=== PATIENT | male | born 2005 ===

== ENCOUNTER 2025-01-07 04:15 | Emergency (ER) | payer OTHER, SELFPAY ==
[2025-01-07 04:25] VITALS: BP 118/73; PULSE 74; RESP 16; TEMP 36.3; O2SAT 98; BMI 21.1
--- NOTE | 2025-01-07 04:45 | ED_ITS ---
HPI - General Adult General Chief complaint: Ear/Nose/Throat Problem Stated complaint: right ear pain Time Seen by Provider: 01/07/25 04:32 Source: patient Mode of arrival: ambulatory Limitations: no limitations History of Present Illness HPI narrative: 19-year-old male presents the emergency department in the wee hours for evaluation of right ear pain for the past 2 hours. Pain constant and achy. No drainage. Opposite ear not affected. Has not tried Tylenol, ibuprofen or any other interventions. Has had URI symptoms for about the past week or so, no fevers. No GI symptoms. No severe shortness of breath or other systemic symptoms. Has not tried any other interventions to help with symptoms. Denies significant past medical history. No long-term medications besides p.r.n. albuterol. He initially denied allergies but then when I attempt to prescribe amoxicillin, states that he thinks he might be allergic to amoxicillin. ROS is notable for the HEENT symptoms only, otherwise denies times 12 systems. Related Data Home Medications ?Medication ?Instructions ?Recorded ?Confirmed albuterol 90 mcg/actuation aerosol mcg inhalation 12/17 06/09 inhaler Previous Rx's ?Medication ?Instructions ?Recorded azithromycin 250 mg tablet See Rx Instructions PO .COM PLEX #6 01/07/25 tabs Allergies Allergy/AdvReac Type Severity Reaction Status Date / Time No Known Drug Allergies Allergy Verified 01/07/25 04:28 Exam Const: Vital Signs, click to edit/add: Vital Signs - 24 hr 01/07/25 04:25 Temperature 97.4 F L Pulse Rate [Pulse Oximeter] 74 Respiratory Rate 16 Blood Pressure [Ri ght Upper Arm] 118/73 Pulse Oximetry 98 Oxygen Delivery Me thod Room Air Documenting provider has reviewed patient's vital signs: yes Common normals: no apparent distress General appearance: cooperative and well kempt HENMT: Common normals: moist oral mucous membranes, oropharynx normal and dentition normal Face and sinus: normal facial exam Other: Left TM and canal normal. Right TM with cerumen impaction, gently cleared with ear curette to reveal normal canal. TM though is erythematous, injected does not bulged but does have slight skewing of the light reflex. Eye: Common normals: conjunctivae normal General eye: normal appearance of both eyes Conjunctiva: conjunctiva(e) normal Neck & C-Spine: Common normals: no lymphadenopathy General: normal visual inspection Resp: Common normals: normal respiratory effort Effort & inspection: able to speak in complete sentences Psych: Appearance: well kempt Attitude: engaged Insight: insight good Judgement: judgment good Skin: Common normals: no rashes or lesions noted General skin exam: no rashes or lesions noted Course Course ED Course: 19-year-old male with right ear pain, no features of sepsis, meningitis or other alarming symptoms. Has had recent URI. Symptoms improved little bit with clearing of the cerumen but TM does show signs of infection. Counseled patient that it is difficult to tell if this is viral or bacterial but typically after progression following URI, antibiotics are reasonable. Counseled that the most important thing those pain control. Patient should have access to Tylenol and ibuprofen in his dorm room. Proper dosing reviewed. Will give both here in the ED for pain control, counseled on pyug-cwv-ybrkjtn sleep aids as well. Patient thinks he might be amoxicillin allergic. There are many alternatives that would treat both the ear and mild URI. Will go with azithromycin 500 mg p.o. x1 and then continue on a Z-Martin daily for 5 days. Patient will pick this up at pharmacy per his request. Alarm symptoms reviewed that would warrant re- evaluation and typical course of healing discussed, written instructions provided. Vital Signs Vital signs: Initial Vital Signs Temperature 97.4 F L 01/07/25 04:25 Temperature Source Temporal Artery Scan 01/07/25 04:25 Pulse Rate 74 01/07/25 04:25 Respiratory Rate 16 01/07/25 04:25 Blood Pressure 118/73 01/07/25 04:25 Blood Pressure Mean 88 01/07/25 04:25 Blood Pressure Position Sitting 01/07/25 04:25 Pulse Oximetry 98 01/07/25 04:25 Oxygen Delivery Method Room Air 01/07/25 04:25 Vital Signs Temperature 97.4 F L 01/07/25 04:25 Pulse Rate 74 01/07/25 04:25 Respiratory Rate 16 01/07/25 04:25 Blood Pressure 118/73 01/07/25 04:25 Pulse Oximetry 98 01/07/25 04:25 Oxygen Delivery Method Room Air 01/07/25 04:25 Temperature 97.4 F L 01/07/25 04:25 Pulse Rate 74 01/07/25 04:25 Respiratory Rate 16 01/07/25 04:25 Blood Pressure 118/73 01/07/25 04:25 Pulse Oximetry 98 01/07/25 04:25 Oxygen Delivery Method Room Air 01/07/25 04:25 Discharge Plan Discharge Clinical Impression: Otitis media Patient Disposition: Home, Self-Care Condition: Stable Instructions: Ear Infection (ED) Additional Instructions: As we discussed, you do have signs of a mild ear infection. Thankfully, this does not appear to be life-threatening. It is important that you are making use of czlv-zyp-[id number] pain medications to reduce her symptoms. For someone your size, Tylenol 1000 mg every 6 hours and or ibuprofen 600 mg every 6 hours should be use. Please pick both of these up at the pharmacy or grocery store today and keep these for use when needed in your dorm room. It is also okay to use gentle orug-rjo-xehpagk sleep aids like melatonin or Benadryl to help with sleep until the infection heals. It can take a week for hearing to return to normal, 2-3 d ays typically on antibiotics before symptoms improve. You were given your 1st dose of antibiotics here in the emergency room. Your next dose will be Saturday morning. Please picking supervisor the antibiotics today so that you can have access to them early Saturday morning. Your antibiotic will be taken once daily. It does keep working for couple of days even after the last dose is finished. If you do not notice improvement in 10 days, please make a follow-up appointment with a primary care provider. If you have severe headache, high fever, persistent ear drainage or other abnormality, please be re-evaluated in urgent care. You are cleared to return to school, work and all other typical duties today. Activity Level: No Restrictions Discharge Diet: Regular Prescriptions: New azithromycin 250 mg tablet See Rx Instructions .ROUTE .COMPLEX Qty: 6 0RF Rx Instructions: For 250 mg dose pack: take 500 mg today (day 1), then 250 mg for 4 days (days 2-5) No Action albuterol 90 mcg/actuation aerosol inhalation Stand Alone Forms: [employer] Key[employer] Info Instructions
[2025-01-07] MEDS: AZITHROMYCIN 250 MG TABLET 500 MG PO (04:47)
[2025-01-07] MEDS: ACETAMINOPHEN 500 MG TABLET 1000 MG PO (04:48)
[2025-01-07] MEDS: IBUPROFEN 400 MG TABLET 800 MG PO (04:49)
--- OUTSIDE RECORDS SUMMARY | 2025-01-07 04:52 | XMS_ITS | Clinical Summary ---
Author Organization [facility] Address [address] [place] [id number] Care Team Providers Care [employer] Insurance Claim Examiner Name Role Phone Pcp, No Primary Care Provider Unavailabl e Allergies No known active allergies Medications fexofenadine (Shobha Allergy) 180 mg tablet Take 180 mg by mouth once daily with a meal. Do not crush or chew. Active Social History Tobacco Use Types Packs/Day Years Used Date Smoking Tobacco: Never Smokeless Tobacco: Never Tobacco Cessation:Counseling Given: Not Answered Alcohol Use Standard Drinks/Week Comments Never 0 (1 standard drink = 0.6 oz pur e alcohol) Social Connections Answer Date Recorded Frequency of Communication with Friends and Fami ly Not on file 11/25/2023 Sex and Gender Information Value Date Recorded Sex Assigned at Not on file Legal Sex Male 5:05 PM CDT Gender Identity Not on file Sexual Orientation Not on file Obstetrics History Last Filed Vital Signs Vital Sign Reading Time Taken Comments Blood Pressure 113/74 11/25/2023 9:47 AM CDT Pulse 89 11/25/2023 9:47 AM CDT Temperature 36.6 C (97.9 F) 11/25/2023 9:47 AM CDT Respiratory Rate - - Oxygen Saturation 100% 11/25/2023 9:47 AM CDT Inhaled Oxygen Concentration - - Weight 66.8 kg (147 lb 3.2 oz) 11/25/2023 9:47 A M CDT Height 185 cm (6' 0.84) 11/25/2023 9:47 AM CDT Body Mass Index 19.51 11/25/2023 9:47 AM CDT Body Mass Index Percentile 13.51% 11/25/2023 9:4 7 AM CDT Growth Chart: CDC (Boys, 2-2 0 Years) Plan of Treatment Health Maintenance Due Date Last Done Comments Well Child Check for age 3-20 04/14/2008 Tetanus booster 2016 Depression screening for age 12+ 2017 HIV for age 15-65 2020 HPV series for age 9-45 (1 - Male 3-dose series) 2020 Hepatitis C screening for ag e 18-79 2023 Hepatitis B series for 19+ ( 1 of 3 - 19+ 3-dose series) 2024 COVID-19 vaccine series ( - 2024- season) 2024 08/25/2020, 08/04/2020 Influenza Vaccine (#1) 2024 BMI (ht and wt on same day) for age 18+ 11/24/2024 11/25/2023 RSV vaccine for adults or (1 - 1-dose 75+ series) 2080 Meningococcal series for age 11-21 Aged Out No longer eligible b ased on patient's age to complete this topic Pneumococcal series for age 6-49 Aged Out No longer eligible b ased on patient's age to complete this topic Insurance ALLEGIANCE Care Teams Automobile Insurance Claim Examiner Relationship Specialty Start Date End Date Pcp, No . PCP - General 09/05/23
--- OUTSIDE RECORDS SUMMARY | 2025-01-07 04:52 | XMS_ITS | Encounter Summary ---
Author Organization [facility] Address [address] [place] [address] Care Team Providers Care Erection Shop Supervisor Name Role Phone Su Kraft MD Primary Care Provider [phone] Encounter Details Date Type Department Care Team (Late st Contact Info) Description 10/11/2024 Results Follow-Up [facility] [address] [place] [address] Su Kraft MD [address] [facility] [address] [place], [place] [id number] CBC with platelet and differential, Comprehensive metabolic panel, Hemoglobin A1c, Additional followed-up results: 8 Social History Tobacco Use Types Packs/Day Years Used Date Smoking Tobacco: Never Smokeless Tobacco: Never Alcohol Use Standard Drinks/Week Comments Yes 0 (1 standard drink = 0.6 oz pur e alcohol) once every other week AUDIT-C Answer Date Recorded Q1: How often do you have a drink containing alc ohol? Never 12/11/2019 Average Number of Drinks Not on file 020 Frequency of Binge Drinking Not on file 11/17 PHQ-2 Answer Date Recorded PHQ-9 Total Score 0 10/08/2024 Sex and Gender Information Value Date Recorded Sex Assigned at Not on file Legal Sex Male 1:53 PM CDT Gender Identity Not on file Sexual Orientation Not on file documented as of this encounter Plan of Treatment Not on file documented as of this encounter Visit Diagnoses Not on filedocumented in this encounter Care Teams Erection Shop Supervisor Relationship Specialty Start Date End Date Su Kraft MD [address] [facility] [address] [place], [place] [id number] PCP - General Internal Medicine 10/08/24 documented as of this encounter
--- OUTSIDE RECORDS SUMMARY | 2025-01-07 04:52 | XMS_ITS | Clinical Summary ---
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 Tested as infant to formula allergy Medications levalbuterol (XOPENEX HFA) 45 mcg/actuation inhaler Inhale 1-2 puffs every 4 (four) hours as needed for wheezing. Active fexofenadine HCl (HERMINIA ALLERGY ORAL) Take by mouth. Active fluticasone propionate (FLONASE) 50 mcg/actuation nasal spray 1 spray (50 mcg total) by Each Naris route 2 (two) times a day. 09/06/2019 Active epINEPHrine (EPIPEN) 0.3 mg/0.3 mL auto-injector Inject 0.3 mL (0.3 mg total) into the shoulder, thigh, or buttocks. 03/16/2015 Active diphenhydramine HCl (BENADRYL ALLERGY ORAL) Take by mouth. Active fluticasone propion-salmeter oL (Advair HFA) 45-21 mcg/actuation inhaler Inhale 2 puffs 2 (two) times a day. Active Active Problems Problem Noted Date Diagnosed Date Mild intermittent asthma without complication Environmental allergies 10/08/2024 Vitamin D deficiency 10/08/2024 Multiple food allergies 10/08/2024 Encounters Date Type Department Care Team Description 11/12/2024 2:40 PM CDT Office Visit [facility] [address] [place] [address] Jessica Mazariegos, OD Optic cupping of both eyes (Primary Dx); Dry eye syndrome of both eyes; Myopia of both eyes 10/11/2024 Results Follow-Up [facility] [address] [place] [address] [address] [place] [address] Su Kraft MD CBC with platelet and differential, Comprehensive metabolic panel, Hemoglobin A1c, Additional followed-up results: 8 10/08/2024 1:50 PM CDT Lab [facility] [address] [place] [address]. 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; Routine screening for STI (sexually transmitted infection); Vitamin D deficiency 10/08/2024 1:00 PM CDT Office Visit [facility] [address] [place] [address] [place] [phone] Su Kraft MD Encounter to establish care (Primary Dx); Visit for annual health examination; Mild intermittent asthma without complication; Environmental allergies; Routine screening for STI (sexually transmitted infection); Vitamin D deficiency; Other jail (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 from Last 3 Months Immunizations Immunization Administration Dates Next Due AFLURIA QUAD PEDIATRIC (6-35MO) PF 04/15/2013 DTaP, Unspecified 07/11/2009, 7,2005,09/13,2005 FLUZONE TRIVALENT 02/22/2024, 2,01/14/2012,12/29,12/06/2009,12/02/2008,12/17/2007 ,12/30/2006,02/25/2006 Gardasil-9 07/25/2023,05/31/2023 Hep A, Unspecified 05/20/2007,09/13/2006 Hep B, Adolescent or Pediatric 11/10/2021 Hep B, Unspecified 03/20/2006,2005, 006 HiB 09/13/2006, 6,2005,07/03 Hib (PRP-D) 09/13/2006, 6,2005,07/03 IPV 06/01/2009, 7,2005,07/03 Influenza, Injectable, Quadr ivalent, Preservative Free 01/25/2023,12/02/2021,01/21/2021,12/18,12/23/2017,01/12/2017,11/08/2015 ,12/20/2014,02/01/2014,04/15/2013 MMR 06/01/2009 MMRV 05/16/2006 Meningcoccal Group B, Recombinant 07/25/2023, Meningococcal MCV4P 08/03/2021,05/23/2016 PFIZER COVID-19 MRNA VACCINATION 08/25/2020,07/17 PPD Test 07/02/2022 Pneumococcal Conjugate 05/16/2006,2005,2005,07/03 Tdap 05/23/2016 Typhoid Live 01/23/2008 Varicella 06/01/2009 Family History Medical History Relation Name Comments Diabetes Father Keratoconus Father Pancreatic cancer Maternal Grandfather Retinal detachment Maternal Grandfather Stroke Maternal Grandfather No Known Problems Mother Relation Name Status Comments Father Alive Maternal Grandfather Mother Alive Social History Tobacco Use Types Packs/Day Years Used Date Smoking Tobacco: Never Smokeless Tobacco: Never Tobacco Cessation:Counseling Given: Yes Alcohol Use Standard Drinks/Week Comments Yes 0 [...] on file Sexual Orientation Not on file Last Filed Vital Signs Vital Sign Reading Time Taken Comments Blood Pressure 106/65 10/08/2024 1:08 PM CDT Pulse 79 10/08/2024 1:08 PM CDT Temperature 37.1 C (98.7 F) 10/08/2024 1:08 PM CDT Respiratory Rate 20 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 Saturation 98% 10/08/2024 1:08 PM CDT Inhaled Oxygen Concentration - - Weight 74.4 kg (164 lb) 10/08/2024 1:08 PM CDT Height 175.3 cm (5' 9) 10/08/2024 1:08 PM CDT Body Mass Index 24.22 10/08/2024 1:08 PM CDT Plan of Treatment Health Maintenance Due Date Last Done Comments HEPATITIS C SCREENING 2023 Pneumococcal Vaccine: Pediat rics (0 to 5 Years) and At-Risk Patients (6 to 49 Years) (1 of 2 - PCV) 2024 05/16/2006, 2005, 2005, Additional history exists COVID-19 VACCINE (3 - 2024-2 6 season) 2024 08/25/2020, 08/04/2020 INFLUENZA VACCINE (#1) 2024 , 02/22/2024, 01/25/2023, Additional history exists HEPATITIS B VACCINES Completed 11/10/2021, 03/20/2006, 2005, Additional history exists MENINGOCOCCAL B SERIES VACCINE Completed 07/25/2023 , 08/09/2022 Procedures Procedure Name Priority Date/Time Associated Diagnosis Comments OCT, OPTIC NERVE - OU - BOTH EYES Routine 11/12/2024 2:59 PM CDT Optic cupping of both eyes ESTIMATED GFR Routine 10/08/2024 1:50 PM CDT VITAMIN D 25 HYDROXY LEVEL Routine 10/08/2024 1:50 PM CDT Vitamin D deficiency 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 SYPHILIS TREPONEMA SCREEN WITH RPR CONFIRMATION (REVERSE ALGORITHM) Routine 10/08/2024 1:50 PM CDT Routine screening for STI (sexually transmitted infection) Other jail (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 HIV 1/2 ANTIGEN/ANTIBODY, FOURTH GENERATION, WITH REFLEXES Routine 10/08/2024 1:50 PM CDT Routine screening for STI (sexually transmitted infection) Other jail (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 URINALYSIS SCREEN AND MICROSCOPY, WITH REFLEX TO CULTURE Routine 10/08/2024 1:50 PM CDT Visit for annual health examination 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 TSH WITH REFLEX TO FREE T4 Routine 10/08/2024 1:50 PM CDT Visit for annual health examination 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 LIPID PANEL Routine 10/08/2024 1:50 PM CDT Visit for annual health examination 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 HEMOGLOBIN A1C Routine 10/08/2024 1:50 PM CDT Visit for annual health examination Other jail (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 COMPREHENSIVE METABOLIC PANEL Routine 10/08/2024 1:50 PM CDT Visit for annual health examination Other jail (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 CBC WITH PLATELET AND DIFFERENTIAL Routine 10/08/2024 1:50 PM CDT Visit for annual health examination Other jail (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 CHLAMYDIA/GONORRHOEAE, KAI Routine 10/08/2024 1:50 PM CDT Routine screening for STI (sexually transmitted infection) 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 normal. 93. Left Eye Reliability was good. normal. 92. us Jessica Mazariegos OD OPHTHALMOLOGY SERVICES O RDERABLES Final Result [facility] * Chlamydia/gonorrhoeae, KAI (10/08/2024 1:50 PM CDT) Chlamydia trachomatis, KAI Not-Detecte d Not-Detec bucky 10/09/2024 1:[address] [facility] Neisseria gonorrhoeae, KAI Not-Detecte d Not-Detec bucky 10/09/2024 1:[address] [facility] Chlamydia/gono rrhoeae, KAI PDF See link below for PDF Lab Report [facility]OM[facility] MEDICINE Comment: [id number] Urine Venipuncture / Unknown 10/08/2024 1:50 PM CDT 10/09/2024 4:07 AM CDT Narrative [facility] PATHOLOGY [facility] GENOMIC MEDICINE - 10/09/2024 1:12 PM CDT us Su Kraft MD LAB BLOOD ORDERABLES Final Result [facility]OLOG[facility]OMIC MEDICINE [address] [place] [address] [facility] [address] [place] [phone] * TSH with reflex to free T4 (10/08/2024 1:50 PM CDT) TSH 0.93 0.27 - 4.20 uIU/mL 10/08/2024 10:[address] [facility] Plasma Venipuncture / Unknown 10/08/2024 1:50 PM CDT 10/08/2024 8:53 PM CDT Narrative LABORATORY SERVICES - 10/08/2024 10:48 PM CDT us Su Kraft MD LAB BLOOD ORDERABLES Final Result [facility] [address] [place] [address] [facility] [address] [place] [address] * Urinalysis screen and microscopy, with reflex to culture (10/08/2024 1:50 PM CDT) Specimen site Clean catch 10/08/2024 8:51 PM [facility] Color, UA Straw 10/08/2024 10:16 PM [facility] Appearance, UA Clear 10/08/2024 10:16 PM [facility] Specific gravity, UA 1.020 1.001 - 1.035 10/08/2024 10:16 PM [facility] pH, UA 7.0 5.0 - 8.5 10/08/2024 10:16 PM [facility] Protein, UA Negative Negative 10/08/2024 10:16 PM [facility] Glucose, UA Negative Negative 10/08/2024 10:16 PM [facility] Ketones, UA Negative Negative 10/08/2024 10:16 PM [facility] Bilirubin, UA Negative Negative 10/08/2024 10:16 PM [facility] Blood, UA Negative Negative 10/08/2024 10:16 PM [facility] Nitrite, UA Negative Negative 10/08/2024 10:16 PM [facility] Urobilinogen, UA <2.0 <2.0 mg/dL 10/08/2024 10:16 PM [facility] Leukocyte esterase, UA Negative Negative 10/08/2024 10:16 PM [facility] Epithelial cells, UA None 0 - 5 /hpf 10/08/2024 10:16 PM [facility] WBC, UA None Seen 0 - 1 /hpf 10/08/2024 10:16 PM [facility] RBC, UA None Seen 0 - 5 /hpf 10/08/2024 10:16 PM [facility] Bacteria, UA None Seen None seen 10/08/2024 10:16 PM [facility] Yeast, UA None Seen 10/08/2024 10:16 PM [facility] Yeast with pseudohyphae, UA None Seen 10/08/2024 10:16 PM [facility] Urine Venipuncture / Unknown 10/08/2024 1:50 PM CDT 10/08/2024 8:51 PM CDT Narrative LABORATORY SERVICES - 10/08/2024 10:16 PM CDT Su Kraft MD URINE ORDERABLES Final Res ult Performing Organization Address City/[facility]/ZIP Co de Phone Number LABORATORY SERVICES [address] [place], [place] [phone] [place] [address] LAB[facility]ATORY SERVICES [address] [place] [address] * Estimated GFR (10/08/2024 1:50 PM CDT) [facility] eGFR creat (CKD-EPI 2020) 131 mL/min/1. 73 m^2 10/08/2024 10:[address] [facility] Comment: The creatinine-estimated glomerular filtration rate (Cr-eGFR) is calculated using the equation recommended in November,, by the National Kidney Foundation/[place] [employer] Nephrology Task Force on Reassessing the Inclusion of Race in Diagnosing Kidney Disease. DOI: https://doi.org/10.1053/j.ajkd.2020.08.003). eGFR Interpretation see below 10/08/2024 10:[address] [facility] Comment: Category Units Interpretation G1 >=90 Normal or high G2 60-89 Mildly decreased G3a 45-59 Mildly to moderately decreased G3b 30-44 Moderately to severely decreased G4 15-29 Severely decreased G5 <15 Kidney failure Plasma Venipuncture / Unknown 10/08/2024 1:50 PM CDT 10/08/2024 8:53 PM CDT Narrative LABORATORY SERVICES - 10/08/2024 10:48 PM CDT us Su Kraft MD LAB BLOOD ORDERABLES Final Result Performing Organization Address City/[facility]/ZIP Co de Phone Number LABORATORY SERVICES [address] [place] [address] LAB[facility] SERVICES [address] [place] [address] * Syphilis treponema screen with RPR confirmation (reverse algorithm) (10/08/2024 1:50 PM CDT) [facility] Syphilis total antibody Non-reacti ve Non-react chetan 10/09/2024 7:50 AM CDT [facility] Comment: The reverse algorithm for syphilis testing is utilized in the [facility] Diagnostic Immunology Laboratory, beginning with the Syphilis Total Antibody (IgG and IgM) specific to Treponema pallidum. No serological evidence of syphilis infection. Blood Venipuncture / Unknown 10/08/2024 1:50 PM CDT 10/09/2024 3:13 AM CDT Narrative [facility]PART[facility] OF PATHOLOGY AND GENOMIC MEDICINE - 10/09/2024 7:50 AM CDT Su Kraft MD LAB BLOOD ORDERABLES Final Result [facility] DEPARTMENT PATHOLOGY AND [facility] [address] [place] [address] [address] * HIV 1/2 antigen/antibody, fourth generation, with reflexes (10/08/2024 1:50 PM CDT) [facility] HIV antigen/antibo dy 4th gen Non-reacti ve Non-reacti ve 10/09/2024 12:[address] [facility] Serum Venipuncture / Unknown 10/08/2024 1:50 PM CDT 10/08/2024 8:51 PM CDT Narrative LABORATORY SERVICES - 10/09/2024 12:24 AM CDT us Su Kraft MD LAB BLOOD ORDERABLES Final Result [facility] [address] [place] [address] [facility] [address] [place] [address] * (ABNORMAL) Vitamin D 25 hydroxy level (10/08/2024 1:50 PM CDT) [facility] Vitamin D, 25-hydroxy 24.0(L) 30.0 - 80.0 ng/mL 10/08/2024 11:[address] [facility] Comment: This assay reports the sum of 25-hydroxy vitamin D3 and 25-hydroxy vitamin D2. Reference range: 0-17 years: Deficiency: less than 20ng/mL Optimum level: greater than or equal to 20 ng/mL. 18 years and older: Deficiency: less than 20ng/mL Insufficiency: 20-29 ng/mL Optimum Level: 30-80 ng/mL The assay reportable range is 3.4 ? 155.9 ng/mL. Levels higher than 150 ng/mL may be associated with toxicity. If toxicity is clinically suspected and the reported result is >155.9 ng/mL,contact lab for alternative methods to obtain a definitive level. If separate quantitation of 25-hydroxy vitamin D3 and 25-hydroxy vitamin D2 is needed, please contact lab for alternative methods. Blood Venipuncture / Unknown 10/08/2024 1:50 PM CDT 10/08/2024 8:52 PM CDT Narrative LABORATORY SERVICES - 10/08/2024 11:53 PM CDT Su Kraft MD LAB BLOOD ORDERABLES Final Result LAB[facility]ORY SERVICES [address] [place] [address] [facility] [address] [place] [address] * CBC with platelet and differential (10/08/2024 1:50 PM CDT) WBC 4.19 3.40 - 11.00 k/uL 10/08/2024 8:[address] [facility] RBC 5.27 4.20 - 5.80 m/uL 10/08/2024 8:[address] [facility] HGB 14.6 13.0 - 18.0 g/dL 10/08/2024 8:[address] [facility] HCT 46.2 38.0 - 51.0 % 10/08/2024 8:[address] [facility] MCV 87.7 80.0 - 100.0 fL 10/08/2024 8:[address] [facility] MCH 27.7 27.0 - 34.0 pg 10/08/2024 8:[address] [facility] MCHC 31.6 31.0 - 37.0 g/dL 10/08/2024 8:42 PM [facility] RDW - SD 42.7 fL 10/08/2024 8:42 PM [facility] MPV 10.0 6.9 - 13.2 fL 10/08/2024 8:42 PM [facility] Platelet count 244 150 - 450 k/uL 10/08/2024 8:42 PM [facility] Neutrophils 43.0 % 10/08/2024 8:[address] [facility] Lymphocytes 41.3 % 10/08/2024 8:42 PM [facility] Monocytes 8.6 % 10/08/2024 8:42 PM [facility] Eosinophils 5.5 % 10/08/2024 8:42 PM [facility] Basophils 1.4 % 10/08/2024 8:42 PM [facility] Neutrophils, absolute 1.80 1.50 - 8.50 k/uL 10/08/2024 8:42 PM [facility] Lymphocytes, absolute 1.73 1.00 - 4.80 k/uL 10/08/2024 8:42 PM [facility] Monocytes, absolute 0.36 0.20 - 0.95 k/uL 10/08/2024 8:42 PM [facility] Eosinophils, absolute 0.23 0.00 - 0.60 k/uL 10/08/2024 8:42 PM [facility] Basophils, absolute 0.06 0.00 - 0.25 k/uL 10/08/2024 8:42 PM [facility] Immature granulocytes 0.2 % 10/08/2024 8:42 PM [facility] Immature granulocytes, absolute 0.01 0.00 - 0.11 k/uL 10/08/2024 8:42 PM [facility] Plasma Venipuncture / Unknown 10/08/2024 1:50 PM CDT 10/08/2024 8:26 PM [facility] LABORATORY SERVICES - 10/08/2024 8:42 PM CDT Su Kraft MD LAB BLOOD ORDERABLES Final Result LAB[facility]ATORY SERVICES [address] [place] [id number] [place] [address] LABORATORY SERVICES [address] [place] [phone] * Hemoglobin A1c (10/08/2024 1:50 PM CDT) Hemoglobin A1C 5.4 4.0 - 5.6 % 10/09/2024 12:[address] [facility] Comment: HbA1c cutoffs for diagnosing diabetes: 4.0% - 5.6% = normal 5.7% - 6.4% = increased risk for diabetes (prediabetes) >=6.5% = diabetes Goals for glycemic control (ADA 2016) < 7.0% Target for non adults with diabetes. More or less stringent targets may be appropriate for individual patients. <7.5% Target for Children and adolescents with type 1 diabetes. Blood Venipuncture / Unknown 10/08/2024 1:50 PM CDT 10/08/2024 8:27 PM CDT Narrative LABORATORY SERVICES - 10/09/2024 12:59 AM CDT us Su Kraft MD LAB BLOOD ORDERABLES Final Result Performing Organization Address City/[facility]/ZIP Co de Phone Number LABORATORY SERVICES [address] [place] [address] [phone] [facility] [address] [place] [phone] * (ABNORMAL) Lipid panel (10/08/2024 1:50 PM CDT) Cholesterol, total 158 <200 mg/dL 10/08/2024 10:[address] [facility] Triglycerides 51 <150 mg/dL 10/08/2024 10:[address] [facility] HDL cholesterol 41 >40 mg/dL 10:[address] [facility] LDL cholesterol calculated 106(H) <100 mg/dL 10/08/2024 10:[address] [facility] Non-HDL cholesterol 117 mg/dL 10/08/2024 10:[address] [facility] Cholesterol/HDL ratio 3.85 <5.00 10/08/2024 10:[address] [facility] Comment: FOR MEN, VALUES GREATER THAN 5.00 SUGGEST AN ABOVE AVERAGE RISK FOR CORONARY HEART DISEASE, AND FOR WOMEN, VALUES GREATER THAN 4.44. Lipid panel interpretation See below 10/08/2024 8:[address] [facility] Comment: Total Cholesterol (mg/dL) LDL Cholesterol (mg/dL) <200 Desirable <100 Optimal 200-239 Borderline-high 100-129 Near or above optimal >=240 High 130-159 Borderline-high 160-189 High >=190 Very high HDL Cholesterol (mg/dL) Triglycerides (mg/dL) <40 Low <150 Normal >=60 High 150-199 Borderline-high 200-499 High >=500 Very high Risk Categories that modify LDL goals. Risk Categories LDL goal (mg/dL) CHD and CHD risk equivalent <100 (10-year risk >20%) Multiple (2+) risk factors <130 (10-year risk =<20%) 0-1 risk factors <160 (<10-year risk) Defining levels of lipids in metabolic syndrome Triglycerides >=150 mg/dL HDL Cholesterol Men <40 mg/dL Women <50 mg/dL Non-HDL cholesterol is a second target for therapy in persons with high triglycerides (>=200 mg/dL) Plasma Venipuncture / Unknown 10/08/2024 1:50 PM CDT 10/08/2024 8:53 PM CDT Narrative LABORATORY SERVICES - 10/08/2024 10:48 PM CDT us Su Kraft MD LAB BLOOD ORDERABLES Final Result LAB[facility]ORY SERVICES [address] [place] [address] [facility] [address] [place] [address] * Comprehensive metabolic panel (10/08/2024 1:50 PM CDT) Sodium 138 135 - 148 mEq/L 10/08/2024 10:[address] [facility] Potassium 4.2 3.5 - 5.3 mEq/L 10/08/2024 10:48 PM [facility] Chloride 102 98 - 112 mEq/L 10/08/2024 10:48 PM [facility] CO2 23 20 - 32 mEq/L 10/08/2024 10:48 PM [facility] Anion gap 13 7 - 15 mEq/L 10/08/2024 10:48 PM [facility] BUN 13 6 - 20 mg/dL 10/08/2024 10:48 PM [facility] Creatinine 0.79 0.60 - 1.30 mg/dL 10/08/2024 10:48 PM [facility] Glucose 92 65 - 99 mg/dL 10/08/2024 10:48 PM [facility] Calcium 9.6 8.3 - 10.2 mg/dL 10/08/2024 10:48 PM [facility] Protein 7.3 6.3 - 8.3 g/dL 10/08/2024 10:48 PM [facility] Comment: - [place] 4.6-7.0 g/dL 1 week 4.4-7.6 g/dL 7 months-1year 5.1-7.3 g/dL 1-2 years 5.6-7.5 g/dL >3 years 6.0-8.0 g/dL 18-150 6.3-8.3 g/dL Albumin 4.3 3.5 - 5.0 g/dL 10/08/2024 10:48 PM [facility] Albumin/globulin ratio 1.4 0.7 - 3.8 10/08/2024 10:48 PM [facility] Alkaline phosphatase 98 36 - 130 U/L 10/08/2024 10:48 PM [facility] AST 22 0 - 50 U/L 10/08/2024 10:48 PM [facility] ALT 16 0 - 50 U/L 10/08/2024 10:48 PM [facility] Total bilirubin 0.6 0.0 - 1.2 mg/dL 10/08/2024 10:48 PM [facility] Plasma Venipuncture / Unknown 10/08/2024 1:50 PM CDT 10/08/2024 8:53 PM CDT Narrative LABORATORY SERVICES - 10/08/2024 10:48 PM CDT Su Kraft MD LAB BLOOD ORDERABLES Final Result Performing Organization Address City/State/[facility] Co de Phone Number LABORATORY SERVICES [address] [place], [place] [phone] [place] [address] LABORATORY SERVICES [address] [place] [address] from Last 3 Months Insurance [employer] 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
== END 2025-01-07 04:53 | disposition home or self-care (01) ==
LOC: ED 04:50
PROVIDERS: Emergency Provider Family Medicine
DX: H66.91 Otitis media, unspecified, right ear (principal)
CPT/HCPCS: 99283; A9270